=== PATIENT | female | born 1990 | race Caucasian/White ===

== ENCOUNTER 2022-06-07 13:02 | Inpatient (IN) | payer BC ==
[2022-06-07 15:53] VITALS: BMI 29.2
[2022-06-07] MEDS ORDERED: ACETAMINOPHEN 325 MG TABLET (FP) PO PRN ×2 (18:02)
[2022-06-07] MEDS ORDERED: MAGNESIUM HYDROX 2400MG/30ML ORAL SUSPENSION 30 ML CUP PO PRN (18:02)
[2022-06-07] MEDS ORDERED: LOPERAMIDE HCL 2 MG CAPSULE PO PRN (18:02)
[2022-06-07] MEDS ORDERED: BISMUTH SUBSALICYLATE 524 MG/30 ML PO PRN (18:02)
[2022-06-07] MEDS ORDERED: IBUPROFEN 400 MG TABLET (FP) PO PRN (18:02)
[2022-06-07] MEDS ORDERED: MAG HYDROX/AL HYDROX/SIMETH 30 ML UNIT-DOSE CUP PO PRN (18:02)
[2022-06-07] MEDS ORDERED: DICYCLOMINE HCL 10 MG CAPSULE PO PRN (18:02)
[2022-06-07] MEDS ORDERED: METHOCARBAMOL 500 MG TABLET PO PRN (18:02)
[2022-06-07] MEDS ORDERED: NALOXONE HCL 0.4 MG/ML VIAL IM PRN (18:02)
[2022-06-07] MEDS ORDERED: NICOTINE POLACRILEX 2 MG GUM BUC PRN (18:02)
[2022-06-07] MEDS ORDERED: MAGNESIUM CITRATE 300 ML BOTTLE PO PRN (18:02)
[2022-06-07] MEDS ORDERED: IBUPROFEN 600 MG TABLET (FP) PO PRN (18:02)
[2022-06-07] MEDS ORDERED: BENZOCAINE/MENTHOL (CHLORASEPTIC ) LOZENGE MM PRN (18:02)
[2022-06-07 19:30] VITALS: RESP 18
[2022-06-07] MEDS: MELATONIN 5 MG TABLETS PO SCH (22:48)
[2022-06-07] MEDS: THIAMINE HCL 100 MG TABLET (FP) PO SCH (22:48)
[2022-06-08] MEDS ORDERED: ALBUTEROL SO4 HFA INHALER IH PRN (08:43)
[2022-06-08] MEDS ORDERED: methaDONE HCL 10 MG TABLET PO SCH (11:00)
[2022-06-08] MEDS ORDERED: methaDONE HCL 10 MG TABLET ONE (11:21)
[2022-06-08] MEDS ORDERED: methaDONE HCL 40 MG DISPERSABLE TABLET ONE (11:22)
[2022-06-08] MEDS: NICOTINE 21 MG/24 HOURS TOPICAL PATCH TD SCH (11:24)
[2022-06-08] MEDS: PRENATAL VITAMINS W/ FOLIC ACID TABLET (FP) PO SCH (11:24)
[2022-06-08 12:37] LABS: HEMATOCRIT 35.2 % (32.4-45.2); MCH 29.6 pg (25.7-33.7); MEAN CELL VOLUME 86.9 fl (80-96); MEAN PLT VOLUME 7.9 fl (7.5-11.1); PLATELET COUNT 190 10^3/uL (134-434); RBC 4.05 M/mm3 (3.60-5.2); RDW 13.8 % (11.6-15.6); WHITE BLOOD COUNT 3.8 K/mm3 (4.0-10.0)
[2022-06-08 12:59] LABS: BILIRUBIN,TOTAL 0.2 mg/dL (0.2-1); BLOOD UREA NITROGEN 15.6 mg/dL (7-18); CALCIUM 8.4 mg/dL (8.5-10.1); CREATININE 0.8 mg/dL (0.55-1.3); TOT PROT 5.8 g/dl (6.4-8.2)
[2022-06-08] MEDS: MELATONIN 5 MG TABLETS PO SCH (23:10)
[2022-06-08] MEDS: THIAMINE HCL 100 MG TABLET (FP) PO SCH (23:10)
[2022-06-09] MEDS ORDERED: methaDONE HCL 10 MG TABLET ONE (04:10)
[2022-06-09] MEDS ORDERED: methaDONE HCL 40 MG DISPERSABLE TABLET ONE (04:11)
[2022-06-09] MEDS: PRENATAL VITAMINS W/ FOLIC ACID TABLET (FP) PO SCH (10:25)
[2022-06-09] MEDS: NICOTINE 21 MG/24 HOURS TOPICAL PATCH TD SCH (10:25)
[2022-06-09 13:23] VITALS: BP 108/65; PULSE 52; TEMP 96.6
== END 2022-06-09 15:04 | disposition home or self-care (01) | DRG 773 ==
LOC: YASAS 13:02 → UNDOADMIN 19:01 → Y3N 19:01 → UNDODISIN 06-09 15:04
PROVIDERS: ADMIT Allergy & Immunology; ATTEND Surgery
PROC: HZ2ZZZZ Detoxification Services for Substance Abuse Treatment (ICD-10-PCS; principal; 2022-06-07)
DX: F10.230 Alcohol dependence with withdrawal, uncomplicated (principal); F11.20 Opioid dependence, uncomplicated; F14.20 Cocaine dependence, uncomplicated; F12.10 Cannabis abuse, uncomplicated; F17.210 Nicotine dependence, cigarettes, uncomplicated; J45.30 Mild persistent asthma, uncomplicated; R00.1 Bradycardia, unspecified; Z88.0 Allergy status to penicillin
CPT/HCPCS: 36415; 80053; 81025; 85027; 86780; 87811; 93005; 93010; C9803-CS; U0003; U0005